=== PATIENT | female | born 1945 ===

== ENCOUNTER 2018-05-29 20:19 | Outpatient (CLI) | payer SELFPAY | END 2018-05-29 20:20 | disposition EMS.NT | LOC: EMS 20:19 | PROVIDERS: ATTEND Surgery | DX: R07.9 Chest pain, unspecified (principal); V89.2XXA Person injured in unspecified motor-vehicle accident, traffic, initial encounter; W22.11XA Striking against or struck by driver side automobile airbag, initial encounter; Y92.413 State road as the place of occurrence of the external cause ==

== ENCOUNTER 2018-10-18 14:45 | Outpatient (CLI) | payer SELFPAY | END 2018-10-18 14:46 | disposition EMS.NT | LOC: EMS 14:45 | PROVIDERS: ATTEND Surgery | DX: S09.90XA Unspecified injury of head, initial encounter (principal); V48.4XXA Person boarding or alighting a car injured in noncollision transport accident, initial encounter; Y92.510 Bank as the place of occurrence of the external cause ==

== ENCOUNTER 2022-02-23 08:00 | Outpatient (CLI) | payer MEDICARE, OTHER ==
[2022-02-23 17:39] LABS: BASOPHILS % (AUTO) 0.3 %; EOSINOPHILS % (AUTO) 0.5 %; LYMPHOCYTES # (AUTO) 1.3 10^3/uL (1.5-3.5); LYMPHOCYTES % (AUTO) 19.8 %; MEAN CORPUSCULAR HEMOGLOBIN 30.4 pg (27.0-31.0); MEAN CORPUSCULAR HGB CONC 33.3 g/dL (32.0-36.0); MEAN CORPUSCULAR VOLUME 91.1 fL (81.0-99.0); MEAN PLATELET VOLUME 11.1 fL (7.9-10.8); MONOCYTES # (AUTO) 0.4 10^3/uL (0.0-1.0); MONOCYTES % (AUTO) 6.3 %; NEUTROPHILS # (AUTO) 4.8 10^3/uL (1.5-6.6); NEUTROPHILS % (AUTO) 72.9 %; PLT - PLATELET COUNT 272 10^3/uL (130-450); RED BLOOD COUNT 4.94 10^6/uL (4.20-5.40); RED CELL DISTRIBUTION WIDTH 13.2 % (12.0-15.0); WHITE BLOOD COUNT 6.6 x10^3/uL (4.8-10.8)
[2022-02-23 17:52] LABS: CALCIUM 9.7 mg/dL (8.5-10.3); CREATININE 0.9 mg/dL (0.4-1.0); POTASSIUM 3.6 mmol/L (3.5-5.0)
== END 2022-02-23 23:59 | disposition home or self-care (01) ==
LOC: LAB.N 08:00
PROVIDERS: ATTEND Emergency Medicine
DX: R60.0 Localized edema (principal)
CPT/HCPCS: 36415; 80048; 83880; 85025

== ENCOUNTER → 2022-04-22 | Outpatient (CLI) | payer MEDICARE | END | disposition EMS.NT | LOC: EMS 16:24 | DX: Z03.89 Encounter for observation for other suspected diseases and conditions ruled out (principal) ==

== ENCOUNTER 2022-06-03 18:58 | Outpatient (CLI) | payer MEDICARE | END 2022-06-03 18:59 | disposition EMS.NT | LOC: EMS 18:58 | DX: Z03.89 Encounter for observation for other suspected diseases and conditions ruled out (principal) ==

== ENCOUNTER 2022-08-08 05:21 | Outpatient (CLI) | payer MEDICARE | END 2022-08-08 05:22 | disposition EMS.NT | LOC: EMS 05:21 | DX: Z03.89 Encounter for observation for other suspected diseases and conditions ruled out (principal) ==

== ENCOUNTER 2022-08-15 08:35 | Outpatient (CLI) | payer MEDICARE | END 2022-08-15 23:59 | disposition EMS.NT | LOC: EMS 08:35 | DX: R53.1 Weakness (principal) ==

== ENCOUNTER 2022-11-16 11:53 | Outpatient (CLI) | payer MEDICARE | END 2022-11-16 11:54 | disposition EMS.NT | LOC: EMS 11:53 | DX: Z03.89 Encounter for observation for other suspected diseases and conditions ruled out (principal) ==

== ENCOUNTER 2022-11-21 05:23 | Outpatient (CLI) | payer MEDICARE | END 2022-11-21 05:24 | disposition EMS.NT | LOC: EMS 05:23 | DX: Z03.89 Encounter for observation for other suspected diseases and conditions ruled out (principal) ==

== ENCOUNTER 2022-12-15 06:06 | Outpatient (CLI) | payer MEDICARE | END 2022-12-15 23:59 | disposition left against medical advice (07) | LOC: EMS 06:06 | DX: R29.6 Repeated falls (principal); R53.1 Weakness ==

== ENCOUNTER 2022-12-15 16:03 | Outpatient (CLI) | payer MEDICARE | END 2022-12-15 16:04 | disposition short-term general hospital (02) | LOC: EMS 16:03 | DX: R60.0 Localized edema (principal); R26.2 Difficulty in walking, not elsewhere classified | CPT/HCPCS: A0425; A0429; A0888 ==

== ENCOUNTER 2023-03-02 15:54 | Outpatient (CLI) | payer MEDICARE ==
[2023-03-02 16:03] LABS: GLUCOSE, URINE (UA) NEGATIVE (NEGATIVE); KETONES,URINE (UA) TRACE mg/dL (NEGATIVE); LEUKOCYTE ESTERASE, URINE LARGE (NEGATIVE); NITRITE,URINE NEGATIVE (NEGATIVE); OCCULT BLOOD,URINE MODERATE (NEGATIVE); PH,URINE 7.5 PH (5.0-7.5); PROTEIN,URINE 100 mg/dL (NEGATIVE); UROBILINOGEN,URINE 4 E.U./dL (NORMAL)
[2023-03-02 16:04] LABS: CLARITY,URINE CLOUDY (CLEAR)
[2023-03-02 16:15] LABS: AMORPHOUS SEDIMENT,UR Few /LPF; BACTERIA,URINE Many /HPF (None Seen); BILIRUBIN,URINE NEGATIVE (NEGATIVE); ICTOTEST,URINE NEGATIVE; SQUAMOUS EPITHELIAL CELL,UR RARE Squamous (<= Few); WBC,URINE >25 /HPF (0-5)
== END 2023-03-02 15:55 | disposition home or self-care (01) ==
LOC: LAB.R 15:54
PROVIDERS: ATTEND Family Medicine
DX: R82.90 Unspecified abnormal findings in urine (principal)
CPT/HCPCS: 81001; 87086; 87181

== ENCOUNTER 2023-03-08 11:07 | Outpatient (CLI) | payer MEDICARE ==
[2023-03-08 11:14] LABS: BILIRUBIN,URINE NEGATIVE (NEGATIVE); GLUCOSE, URINE (UA) NEGATIVE (NEGATIVE); KETONES,URINE (UA) NEGATIVE (NEGATIVE); LEUKOCYTE ESTERASE, URINE LARGE (NEGATIVE); NITRITE,URINE POSITIVE (NEGATIVE); OCCULT BLOOD,URINE LARGE (NEGATIVE); PROTEIN,URINE 30 mg/dL (NEGATIVE); UROBILINOGEN,URINE 4 E.U./dL (NORMAL)
[2023-03-08 11:21] LABS: BACTERIA,URINE Moderate /HPF (None Seen); CLARITY,URINE CLOUDY (CLEAR); SQUAMOUS EPITHELIAL CELL,UR MOD Squamous (<= Few); WBC,URINE >25 /HPF (0-5)
== END 2023-03-08 11:08 | disposition home or self-care (01) ==
LOC: LAB.R 11:07
PROVIDERS: ATTEND Family Medicine
DX: N18.9 Chronic kidney disease, unspecified (principal)
CPT/HCPCS: 81001

== ENCOUNTER 2023-04-08 08:00 | Outpatient (CLI) | payer MEDICARE ==
[2023-04-08 18:42] LABS: BILIRUBIN,URINE NEGATIVE (NEGATIVE); GLUCOSE, URINE (UA) NEGATIVE (NEGATIVE); KETONES,URINE (UA) 15 mg/dL (NEGATIVE); LEUKOCYTE ESTERASE, URINE LARGE (NEGATIVE); NITRITE,URINE NEGATIVE (NEGATIVE); OCCULT BLOOD,URINE SMALL (NEGATIVE); PH,URINE >=9.0 PH (5.0-7.5); PROTEIN,URINE >=300 mg/dL (NEGATIVE); UROBILINOGEN,URINE >=8.0 E.U./dL (NORMAL)
[2023-04-08 18:48] LABS: CLARITY,URINE HAZY (CLEAR)
[2023-04-08 19:02] LABS: AMORPHOUS SEDIMENT,UR Marked /LPF; BACTERIA,URINE Many /HPF (None Seen); MUCUS,URINE Marked Strands; RBC,URINE None Seen /HPF (0-5); SQUAMOUS EPITHELIAL CELL,UR NONE SEEN (<= Few)
== END 2023-04-08 23:59 | disposition home or self-care (01) ==
LOC: LAB.R 08:00
PROVIDERS: ATTEND Family Medicine
DX: N39.0 Urinary tract infection, site not specified (principal)
CPT/HCPCS: 81001

== ENCOUNTER 2023-04-12 09:32 | Outpatient (CLI) | payer MEDICARE | END 2023-04-12 23:59 | disposition short-term general hospital (02) | LOC: EMS 09:32 | DX: R40.0 Somnolence (principal); R50.9 Fever, unspecified; N39.0 Urinary tract infection, site not specified; Z74.01 Bed confinement status; F03.90 Unspecified dementia, unspecified severity, without behavioral disturbance, psychotic disturbance, mood disturbance, and anxiety | CPT/HCPCS: A0425; A0429; A0888 ==